=== PATIENT | female | born 1950 | race Caucasian/White ===

== ENCOUNTER → 2022-06-17 | Outpatient (CLI) | payer MEDICARE ==
[~2022-06-17] MED LIST: IOHEXOL 350 MG/ML 100 ML (OMNIPAQUE 350) VIAL IV ONE; NS 100 ML (IVPB) BAG IV ONE
--- NOTE | 2022-06-17 16:35 | Diagnostic Imaging Report ---
EXAMINATION: CT angiography of the chest. TECHNIQUE: Contrast enhanced thin section helical images were obtained through the chest with intravenous contrast timed for the optimal opacification of the arterial structures per CTA protocol. Post-processing, reconstructions and interpretation of angiographic images of the vessels was performed. 3D MIP reconstructions were performed and reviewed. All CT scans use one or more of the following dose optimizing techniques: automated exposure control, MA and/or KvP adjustment based on a patient size and exam type, or iterative reconstruction. HISTORY: Aneurysm followup COMPARISON: None available. FINDINGS: Vascular: There are no filling defects within the pulmonary arteries. There is mild aneurysmal dilatation of the ascending thoracic aorta measuring up to 4.1 x 3.8 cm. Thyroid: The thyroid is normal. Mediastinum: Heart size is normal without significant pericardial effusion. No suspicious lymphadenopathy. Lungs and airways: The lungs are clear without consolidation, pleural effusion, or pneumothorax. The airways are normal. Upper abdomen: Surgical changes from gastric lap band. Gallbladder surgically absent. There are multiple calcified granulomas within the spleen. Musculoskeletal: Degenerative changes of the spine without suspicious osseous lesion or compression fracture. IMPRESSION: 1. Mild aneurysmal dilatation of the ascending thoracic aorta measuring up to 4.1 cm. 2. No other acute abnormality in the chest. Dictated by: Dictated on workstation # [id number]
== END ==
LOC: RAD 10:19
PROVIDERS: ATTEND Internal Medicine Cardiovascular Disease
DX: I71.20 Thoracic aortic aneurysm, without rupture, unspecified (principal); I10 Essential (primary) hypertension; I25.10 Atherosclerotic heart disease of native coronary artery without angina pectoris
CPT/HCPCS: 71275; C8929; 93306

== ENCOUNTER → 2022-07-15 | Outpatient (CLI) | payer MEDICARE ==
[~2022-07-15] VITALS: Ht 165.1 cm; Wt 68.2 kg
[~2022-07-15] MED LIST changes: -IOHEXOL 350 MG/ML 100 ML (OMNIPAQUE 350) VIAL IV ONE; +LIDOCAINE 1% INJ 10 ML VIAL INJ ONE; -NS 100 ML (IVPB) BAG IV ONE
--- NOTE | 2022-07-15 13:27 | Diagnostic Imaging Report ---
Indication: Left breast nodule. Patient presents for ultrasound-guided biopsy. Patient brought to the sonographic suite placed on table in the supine position. Ultrasound imaging of the left breast was performed to evaluate appropriate entry site. The left breast was then prepped and draped in usual sterile fashion. Small amount of 1% lidocaine was utilized for local anesthesia. A total of 5 core biopsies were obtained of the hypoechoic nodule in the 12:00 retroareolar left breast utilizing a 14-gauge achieve needle. A marker clip was then deployed. Hemostasis was obtained using manual compression. Patient tolerated the procedure well and was sent for a post procedure mammogram in satisfactory condition. IMPRESSION: Successful ultrasound core biopsy of the hypoechoic nodule at the 12:00 retroareolar left breast. Pathology results are currently pending. Dictated by: Dictated on workstation # [id number]
--- NOTE | 2022-07-15 13:32 | Diagnostic Imaging Report ---
INDICATION: Left breast nodules, status post ultrasound-guided biopsy. Unilateral left 2-D CC and ML mammogram was performed after patient underwent ultrasound-guided biopsy. There is a marker clip in the retroareolar slightly upper left breast adjacent to previously noted nodule. IMPRESSION: Marker clip placement, status post ultrasound guided left breast biopsy. Dictated by: Dictated on workstation # [id number]
== END ==
LOC: RAD 11:43
PROVIDERS: ATTEND Internal Medicine
DX: N63.20 Unspecified lump in the left breast, unspecified quadrant (principal); Z98.82 Breast implant status
CPT/HCPCS: 19083; 77065; A4648; G0279

== ENCOUNTER → 2022-07-20 | Outpatient (CLI) | payer MEDICARE | LOC: CARD 08:15 | PROVIDERS: ATTEND Internal Medicine Cardiovascular Disease | DX: I25.10 Atherosclerotic heart disease of native coronary artery without angina pectoris (principal); I10 Essential (primary) hypertension ==

== ENCOUNTER → 2022-09-21 | Outpatient (CLI) | payer MEDICARE ==
[2022-09-21 10:31] VITALS: BP 143/76
--- NOTE | 2022-09-23 09:03 | Cardiology Stress Test Report ---
Stress Test Report Date of Procedure/Referring: Date of Procedure: Sep 21, 2022 PCP Rupal Salazar DO Admitting Physician Admitting Physician: Attending Physician: Jacobo Dean MD Baseline Heart Rate: 59 Baseline Blood Pressure: Blood Pressure Systolic: 143 Blood Pressure Diastolic: 76 Baseline EKG: Baseline EKG: NSR Summary/Conclusion: Summary: In summary, the patient started exercising with a baseline heart rate, blood pressure and EKG mentioned above Patient was able to exercise for a total of 7 minutes on Real protocol, METs 8.5 Maximum heart rate 142 Maximum blood pressure 186/94 Stress EKG, Minimal nondiagnostic changes Recovery EKG , Return to baseline Conclusion: 1. Good exercise tolerance for a total of 7 minutes on Real protocol, 8.5 METs, achieving 94 percent of maximum expected heart rate 2. Minimal nondiagnostic EKG changes with exercise returned to baseline during recovery 3. No arrhythmia was noted Copy Copies To 1: RUPAL SALAZAR BASHAR J MD Sep 23, 2022 09:03
== END ==
LOC: CARD 09:50
PROVIDERS: ATTEND Internal Medicine Cardiovascular Disease
DX: R07.9 Chest pain, unspecified (principal)
CPT/HCPCS: 93017